=== PATIENT | female | born 1990 | race Caucasian/White ===

== ENCOUNTER 2018-06-08 12:47 | Emergency (ER) | payer MEDICAID ==
[~2018-06-08] VITALS: Ht 170.2 cm; Wt 75.9 kg
[2018-06-08 12:58] VITALS: Ht 170.2 cm; Wt 75.9 kg
[2018-06-08] MEDS ORDERED: IBUPROFEN800 MG PO (14:13)
[2018-06-08] MEDS ORDERED: TYLENOL W/CODEI1 TAB PO (14:13)
[2018-06-08 14:43] VITALS: BP 108/67
== END 2018-06-08 14:43 | disposition home or self-care (01) ==
LOC: D.ER 12:47
DX: S80.02XA Contusion of left knee, initial encounter (principal); W18.00XA Striking against unspecified object with subsequent fall, initial encounter; Y93.89 Activity, other specified; Y92.89 Other specified places as the place of occurrence of the external cause

== ENCOUNTER 2018-07-23 01:45 | Emergency (ER) | payer MEDICAID ==
[~2018-07-23] VITALS: Ht 170.2 cm; Wt 69.1 kg
[~2018-07-23 01:45] MED LIST: IBUPROFEN800 MG PO; TYLENOL W/CODEI1 TAB PO
[2018-07-23 02:15] VITALS: BP 127/70; Ht 170.2 cm; Wt 69.1 kg
[2018-07-23 03:06] LABS: APPEARANCE CLOUDY (CLEAR); BILIRUBIN NEGATIVE (NEGATIVE); COLOR DK YELLOW (YELLOW); GLUCOSE NEGATIVE (NEGATIVE); KETONE SMALL mg/dL (NEGATIVE); NITRITE NEGATIVE (NEGATIVE); PROTEIN TRACE mg/dL (NEGATIVE); SPECIFIC GRAVITY 1.025 (1.005-1.020); UROBILINOGEN NORMAL (NORMAL)
[2018-07-23] MEDS ORDERED: PERMETHRIN60 GM TOPICAL (03:11)
[2018-07-23] MEDS ORDERED: VISTARIL50 MG PO (03:11)
[2018-07-23 03:28] LABS: RED CELLS - URINE OCC /hpf (0-5)
[2018-07-23 03:29] LABS: AMORPHOUS SEDIMENT >1+ /lpf (NONE SEEN); BACTERIA FEW /hpf (NONE SEEN); GRANULAR CAST 0-5 /lpf (NONE SEEN); HYALINE CAST OCC /lpf (NONE SEEN); MUCUS <1+ /lpf (NONE SEEN)
== END 2018-07-23 03:45 | disposition home or self-care (01) ==
LOC: D.ER 01:45
PROVIDERS: Family Medicine
DX: Z20.2 Contact with and (suspected) exposure to infections with a predominantly sexual mode of transmission (principal); B86 Scabies